=== PATIENT | female | born 1975 | race Caucasian/White ===

== ENCOUNTER 2019-05-16 17:16 | Observation (INO) | payer BC, OTHER ==
[2019-05-16] MEDS ORDERED: Sodium Chloride 0.9% 10 ML Syringe FLUSH PRN (17:40)
[2019-05-16] MEDS ORDERED: Sodium Chloride 0.9% 2.5 ML Syringe FLUSH PRN (17:40)
[2019-05-16] MEDS ORDERED: Ondansetron 4 MG/2 ML SDV IVPUSH ONE (17:59)
--- NOTE | 2019-05-16 17:59 | EDM.PDOC ---
ED HPI GENERAL MEDICAL PROBLEM - General Stated Complaint: NAUSEA, BODY ACHES Time Seen by Provider: 05/16/19 17:40 Source of Information: Reports: Patient History Limitations: Reports: No Limitations - History of Present Illness INITIAL COMMENTS - FREE TEXT/NARRATIVE: HISTORY AND PHYSICAL: History of present illness: Patient is a 43-year-old female who presents to the emergency room today with complaints of nausea, vomiting and generalized body aches. She reports that she was at the clinic earlier today for these symptoms and was discharged home with a prescription for Zofran (hasn't filled or taken this medication yet). She did get a call from her primary care provider requesting that she come to the emergency room for reevaluation as her BUN/creatinine and calcium levels were elevated. Patient states she does have a history of type 2 diabetes and take Metformin along with Novolog subQ. Her blood sugars at home have been running in the 70's to low 110's. Patient denies any fever, chills, headache, change in vision, syncope or near syncope. Denies any chest pain, back pain, shortness of breath or cough. Denies any abdominal pain, diarrhea, constipation or dysuria. Has not noted any blood in urine or stool. Patient has been eating and drinking appropriately. Review of systems: As per history of present illness and below otherwise all systems reviewed and negative. Past medical history: As per history of present illness and as reviewed below otherwise noncontributory. Surgical history: As per history of present illness and as reviewed below otherwise noncontributory. Social history: See social history for further information Family history: As per history of present illness and as reviewed below otherwise noncontributory. Physical exam: General: Well-developed and well-nourished 43-year-old female. Alert and oriented. Nontoxic-appearing and in no acute distress. HEENT: Atraumatic, normocephalic, pupils equal and reactive bilaterally, negative for conjunctival pallor or scleral icterus, mucous membranes dry and cracked, TMs normal bilaterally, throat clear, neck supple, nontender, trachea midline. No drooling or trismus noted. No meningeal signs. No hot potato voice noted. Lungs: Clear to auscultation, breath sounds equal bilaterally, chest nontender. Heart: S1S2, regular rate and rhythm without overt murmur Abdomen: Soft, nondistended, nontender. Negative for masses or hepatosplenomegaly. Negative for costovertebral tenderness. Pelvis: Stable nontender. Skin: Intact, warm, dry. No lesions or rashes noted. Extremities: Atraumatic, moves all extremities per self without difficulty or deficits, negative for cords or calf pain. Neurovascular unremarkable. Neuro: Awake, alert, oriented. Cranial nerves II through XII unremarkable. Cerebellum unremarkable. Motor and sensory unremarkable throughout. Exam nonfocal. Notes: Patient's calcium, BUN and creatinine are elevated. I did talk to Dr. Gage, specialist production control supervisor, who is agreeable to keeping this patient for further management and care. I did add a parathyroid lab and additional fluids on at this time. Patient was made aware of today's lab findings and is agreeable for admission. Vital signs remained stable. Diagnostics: CBC, CMP, UA, Influenza, PTH, Therapeutics: IV fluids, Zofran Impression: Hypercalcemia History of type 2 diabetes Dehydration Plan: Observation admission with telemetry Definitive disposition and diagnosis as appropriate pending reevaluation and review of above. Generalized Pain Score (Numeric/FACES): 4 - Related Data Allergies Allergy/AdvReac Type Severity Reaction Status Date / Time No Known Allergies Allergy Verified 05/16/19 17:45 Home Meds: Home Meds Insulin Detemir [Levemir Flextouch] 20 units SUBCUT DAILY 12/25/14 [History] Lisinopril 40 mg PO QPM 12/25/14 [History] metFORMIN HCl [Metformin HCl] 500 mg PO QPM 12/25/14 [History] Calcium Carbonate [Calcium] 600 mg PO DAILY 02/17/18 [History] Cholecalciferol (Vitamin D3) [Vitamin D] 400 units PO DAILY 02/17/18 [History] Cinnamon Bark [Cinnamon] 500 mg PO DAILY 02/17/18 [History] Escitalopram Oxalate 20 mg PO DAILY 02/17/18 [History] Indapamide 2.5 mg PO QAM 02/17/18 [History] Insulin Aspart [NovoLOG] 1 injection SUBCUT ASDIRECTED 02/17/18 [History] Multivitamin [Multivitamins] 1 tab PO DAILY 02/17/18 [History] atorvaSTATin Calcium [Atorvastatin Calcium] 20 mg PO DAILY 02/17/18 [History] metFORMIN HCl [Metformin HCl] 1,000 mg PO QAM 02/17/18 [History] Past Medical History HEENT History: Reports: Other (See Below) Other HEENT History: wears glasses Cardiovascular History: Reports: Hypertension, Other (See Below) (borderline cholesterol) Gastrointestinal History: Reports: Colon Polyp Neurological History: Reports: Headaches, Chronic, Neuropathy, Peripheral Psychiatric History: Reports: Anxiety, Depression Endocrine/Metabolic History: Reports: Diabetes, Type II, Obesity/BMI 30+ Dermatologic History: Reports: Other (See Below) Other Dermatologic History: dry skin - Past Surgical History Head Surgeries/Procedures: Reports: None HEENT Surgical History: Reports: Oral Surgery GI Surgical History: Reports: Colonoscopy (3 years ago) ED ROS GENERAL - Review of Systems Review Of Systems: Comprehensive ROS is negative, except as noted in HPI. ED EXAM, GENERAL - Physical Exam Exam: See Below (See dictation) Course - Vital Signs Last Recorded V/S: Last Vital Signs Temp 97.6 F 05/16/19 17:45 Pulse 93 05/16/19 17:45 Resp 16 05/16/19 17:45 BP 134/78 05/16/19 17:45 Pulse Ox 97 05/16/19 17:45 - Orders/Labs/Meds Orders: Active Orders 24 hr Category Date Time Status Patient Status [ADT] Stat ADT 05/16/19 18:58 Ordered EKG Documentation Completion [RC] STAT Care 05/16/19 17:59 Active PTHRP (PTH-RELATED PEPTIDE) [REF] Stat Lab 05/16/19 18:53 Ordered TSH [CHEM] Stat Lab 05/16/19 18:53 Ordered UA RFX SHAMIR AND CULT IF INDIC [URIN] Stat Lab 05/16/19 18:43 Ordered Sodium Chloride 0.9% [Normal Saline] 1,000 ml Med 05/16/19 18:58 Ordered IV STAT Sodium Chloride 0.9% [Saline Flush] Med 05/16/19 17:40 Active 10 ml FLUSH ASDIRECTED PRN Sodium Chloride 0.9% [Saline Flush] Med 05/16/19 17:40 Active 2.5 ml FLUSH ASDIRECTED PRN Saline Lock Insert [OM.PC] Stat Oth 05/16/19 17:40 Ordered Medication Orders Sodium Chloride (Normal Saline) 1,000 mls @ 999 mls/hr IV STAT ONE Stop: 05/16/19 19:58 Sodium Chloride (Saline Flush) 10 ml FLUSH ASDIRECTED PRN PRN Reason: Keep Vein Open Sodium Chloride (Saline Flush) 2.5 ml FLUSH ASDIRECTED PRN PRN Reason: Keep Vein Open Labs: Laboratory Tests 05/16/19 05/16/19 05/16/19 Range/Units 17:50 17:50 17:50 WBC 9.71 (4.0-11.0) K/uL RBC 4.24 L (4.30-5.90) M/uL Hgb 12.1 (12.0-16.0) g/dL Hct 36.0 (36.0-46.0) % MCV 84.9 (80.0-98.0) fL MCH 28.5 (27.0-32.0) pg MCHC 33.6 (31.0-37.0) g/dL RDW Std Deviation 43.3 (28.0-62.0) fl RDW Coeff of Cathi 14 (11.0-15.0) % Plt Count 202 (150-400) K/uL MPV 10.40 (7.40-12.00) fL Neut % (Auto) 71.6 (48.0-80.0) % Lymph % (Auto) 19.4 (16.0-40.0) % [place] % (Auto) 6.5 (0.0-15.0) % Eos % (Auto) 2.3 (0.0-7.0) % Baso % (Auto) 0.2 (0.0-1.5) % Neut # (Auto) 7.0 H (1.4-5.7) K/uL Lymph # (Auto) 1.9 (0.6-2.4) K/uL [place] # (Auto) 0.6 (0.0-0.8) K/uL Eos # (Auto) 0.2 (0.0-0.7) K/uL Baso # (Auto) 0.0 (0.0-0.1) K/uL Nucleated RBC % 0.0 /100WBC Nucleated RBCs # 0 K/uL Sodium 141 (136-145) mmol/L Potassium 4.1 (3.5-5.1) mmol/L Chloride 103 (98-107) mmol/L Carbon Dioxide 29.2 (21.0-32.0) mmol/L BUN 47 H (7.0-18.0) mg/dL Creatinine 2.1 H (0.6-1.0) mg/dL Est Cr Clr Drug Dosing 30.44 mL/min Estimated GFR (MDRD) 25.5 ml/min Glucose 93 (74-106) mg/dL Calcium 12.8 H (8.5-10.1) mg/dL Total Bilirubin 0.5 (0.2-1.0) mg/dL AST 21 (15-37) IU/L ALT 22 (14-63) IU/L Alkaline Phosphatase 58 (46-116) U/L Total Protein 7.2 (6.4-8.2) g/dL Albumin 3.5 (3.4-5.0) g/dL Globulin 3.7 (2.6-4.0) g/dL Albumin/Globulin Ratio 0.9 (0.9-1.6) Monoscreen NEGATIVE (NEG) Meds: Medications Generic Name Dose Route Start Last Admin Trade Name Freq PRN Reason Stop Dose Admin Sodium Chloride 1,000 mls @ 999 mls/hr 05/16/19 18:58 Normal Saline IV 05/16/19 19:58 STAT ONE Sodium Chloride 10 ml 05/16/19 17:40 Saline Flush FLUSH ASDIRECTED PRN Keep Vein Open Sodium Chloride 2.5 ml 05/16/19 17:40 Saline Flush FLUSH ASDIRECTED PRN Keep Vein Open Discontinued Medications Generic Name Dose Route Start Last Admin Trade Name Freq PRN Reason Stop Dose Admin Sodium Chloride 1,000 mls @ 999 mls/hr 05/16/19 18:01 05/16/19 18:22 Normal Saline IV 05/16/19 19:01 999 mls/hr STAT ONE Administration Ondansetron HCl 4 mg 05/16/19 17:59 05/16/19 18:22 Zofran IVPUSH 05/16/19 18:00 4 mg ONETIME ONE Administration Departure - Departure Time of Disposition: 19:08 Disposition: Refer to Observation Clinical Impression: Hypercalcemia, Dehydration, History of diabetes mellitus, type II - Discharge Information Referrals: Viry Tran, KNITTING MACHINE OPERATOR HELPER [Primary Care Provider] - Sepsis Event Note - Focused Exam Vital Signs: Vital Signs Temp Pulse Resp BP Pulse Ox 05/16/19 17:45 97.6 F 93 16 134/78 97 Date Exam was Performed: 05/16/19 Time Exam was Performed: 19:01 - My Orders Last 24 Hours: My Active Orders 05/16/19 17:40 Sodium Chloride 0.9% [Saline Flush] 10 ml FLUSH ASDIRECTED PRN Sodium Chloride 0.9% [Saline Flush] 2.5 ml FLUSH ASDIRECTED PRN Saline Lock Insert [OM.PC] Stat 05/16/19 17:59 EKG Documentation Completion [RC] STAT 05/16/19 18:43 UA RFX SHAMIR AND CULT IF INDIC [URIN] Stat 05/16/19 18:53 PTHRP (PTH-RELATED PEPTIDE) [REF] Stat TSH [CHEM] Stat 05/16/19 18:58 Patient Status [ADT] Stat Sodium Chloride 0.9% [Normal Saline] 1,000 ml IV STAT - Assessment/Plan Last 24 Hours: My Active Orders 05/16/19 17:40 Sodium Chloride 0.9% [Saline Flush] 10 ml FLUSH ASDIRECTED PRN Sodium Chloride 0.9% [Saline Flush] 2.5 ml FLUSH ASDIRECTED PRN Saline Lock Insert [OM.PC] Stat 05/16/19 17:59 EKG Documentation Completion [RC] STAT 05/16/19 18:43 UA RFX SHAMIR AND CULT IF INDIC [URIN] Stat 05/16/19 18:53 PTHRP (PTH-RELATED PEPTIDE) [REF] Stat TSH [CHEM] Stat 05/16/19 18:58 Patient Status [ADT] Stat Sodium Chloride 0.9% [Normal Saline] 1,000 ml IV STAT
[2019-05-16] MEDS ORDERED: Sodium Chloride 0.9% 1,000 ML IV ONE ×2 (18:01→18:58)
[2019-05-16 18:24] LABS: CARBON DIOXIDE,CO2 29.2 mmol/L (21.0-32.0); POTASSIUM,K 4.1 mmol/L (3.5-5.1)
[2019-05-16] MEDS ORDERED: Calcitonin (Salmon) 200 Units/ML 2 ML MDV SUBCUT ONE (19:15)
[2019-05-16] MEDS ORDERED: Ondansetron 4 MG/2 ML SDV IVPUSH PRN (19:48)
[2019-05-16] MEDS ORDERED: Albuterol/Ipratropium 3.0-0.5 MG/3 ML Neb Soln NEB PRN (19:48)
--- NOTE | 2019-05-16 20:42 | CR ---
Chest: Portable view of the chest was obtained. Comparison: No prior chest imaging. Heart size and mediastinum are normal. Nodular density within the right upper lung is seen believed to represent costochondral calcification of the 1st rib. Lungs are felt to be clear. Calcifications are noted around the right humeral head most likely representing changes from calcific tendinitis. Minimal scoliosis is noted within the spine with scattered endplate spurring. Impression: 1. Findings as noted above. 2. Nothing acute is appreciated on portable chest x-ray. Diagnostic code #2 This report was dictated in [place] Standard Time
[2019-05-16] MEDS ORDERED: Alum Hydrox/Mag Hydrox/Simeth 15 ML, Metoclopramide 5 MG, Lidocaine 2% 5 ML PO ONE ×3 (20:51)
--- NOTE | 2019-05-16 21:42 | PCM.HP.2 ---
H&P History of Present Illness - General Date of Service: 05/16/19 Admit Problem/Dx: Admission Diagnosis/Problem Admission Diagnosis/Problem Hypercalcemia History Limitations: Reports: No Limitations - History of Present Illness Initial Comments - Free Text/Narative: Patient is a 43-year-old female with PMH of DM-type 2 who presents to the emergency room today with complaints of nausea, vomiting and generalized body aches and pain for past several days. She states she feels "run down" even though she has been taking rest for extended amount of time but she still feels severe fatigue. Patient was at the [facility] earlier today to get checked for these symptoms and was prescribed Zofran and some blood work was drawn and was discharged home with a prescription for Zofran . Soon after, She did get a call from her primary care provider requesting that she come to the emergency room for reevaluation as her BUN/creatinine and calcium levels were elevated. Patient denies any fever, chills, headache, change in vision, syncope or near syncope. Denies any chest pain, back pain, shortness of breath or cough. Denies any abdominal pain, diarrhea, constipation or dysuria. Has not noted any blood in urine or stool. Patient has been eating and drinking appropriately. In the ER patient was found to have MARIBELL with filenet p8 developer of 2.1 and her Ca was 12.8. EKG was unremarkable. Received 1L bolus. I requested ER to administer calcitonin and another 1L bolus and obtain PTH. Patient was admitted for further management. Patient non-smoker, no h/o cancer. Onset of Symptoms: Reports: Gradual Duration of Symptoms: Reports: Day(s): Severity: Moderate Improves with: Reports: Immobilization Worsens with: Reports: Movement Associated Symptoms: Reports: Loss of Appetite, Malaise, Nausea/Vomiting, Weakness Generalized Pain Score (Numeric/FACES): 4 - Related Data Allergies/Adverse Reactions: Allergies Allergy/AdvReac Type Severity Reaction Status Date / Time No Known Allergies Allergy Verified 05/16/19 22:52 Home Medications: Home Meds Insulin Detemir [Levemir Flextouch] 20 units SUBCUT BEDTIME 12/25/14 [History] Lisinopril 40 mg PO DAILY 12/25/14 [History] metFORMIN HCl [Metformin HCl] 500 mg PO QPM 12/25/14 [History] Escitalopram Oxalate 20 mg PO DAILY 02/17/18 [History] Indapamide 2.5 mg PO DAILY 02/17/18 [History] Insulin Aspart [NovoLOG] 1 injection SUBCUT ASDIRECTED 02/17/18 [History] atorvaSTATin Calcium [Atorvastatin Calcium] 20 mg PO DAILY 02/17/18 [History] metFORMIN HCl [Metformin HCl] 1,000 mg PO QAM 02/17/18 [History] Exenatide Microspheres [Bydureon Pen] 2 mg SUBCUT WEEKLY 05/16/19 [History] Ondansetron [Ondansetron ODT] 4 mg PO Q6H PRN 05/16/19 [History] Pantoprazole Sodium [Protonix] 20 mg PO DAILY 05/16/19 [History] Past Medical History HEENT History: Reports: Other (See Below) Other HEENT History: wears glasses Cardiovascular History: Reports: Hypertension, Other (See Below) (borderline cholesterol) Gastrointestinal History: Reports: Colon Polyp Neurological History: Reports: Headaches, Chronic, Neuropathy, Peripheral Psychiatric History: Reports: Anxiety, Depression Endocrine/Metabolic History: Reports: Diabetes, Type II, Obesity/BMI 30+ Dermatologic History: Reports: Other (See Below) Other Dermatologic History: dry skin - Infectious Disease History Infectious Disease History: Reports: Chicken Pox - Past Surgical History Head Surgeries/Procedures: Reports: None HEENT Surgical History: Reports: Oral Surgery GI Surgical History: Reports: Colonoscopy (3 years ago) Social & Family History - Tobacco Use Smoking Status *Q: Never Smoker Second Hand Smoke Exposure: No - Caffeine Use Caffeine Use: Reports: Coffee, Soda, Tea - Recreational Drug Use Recreational Drug Use: No H&P Review of Systems - Review of Systems: Review Of Systems: See Below General: Reports: Malaise, Weakness, Fatigue, Decreased Appetite. Denies: Fever , Chills, Night Sweats Pulmonary: Denies: Shortness of Breath, Wheezing, Pleuritic Chest Pain Cardiovascular: Denies: Chest Pain, Palpitations, Dyspnea on Exertion Gastrointestinal: Denies: Abdominal Pain, Black Stool, Bloody Stool, Hematemesis Genitourinary: Reports: Frequency. Denies: Burning, Pain, Urgency, Incontinence Skin: Denies: Cyanosis, Jaundice, Mottled Psychiatric: Denies: Depression, Mood Lability, Anxiety, Agitation, Cravings, Hallucinations Neurological: Denies: Dizziness, Headache, Numbness, Paresthesia Hematologic/Lymphatic: Denies: Anemia, Easy Bleeding, Easy Bruising Exam - Exam Exam: See Below - Vital Signs Vital Signs: Last Vital Signs Temp 36.5 C 05/16/19 19:48 Pulse 86 05/16/19 19:48 Resp 18 05/16/19 19:48 BP 141/69 H 05/16/19 19:48 Pulse Ox 97 05/16/19 19:48 Weight: 97.522 kg - Exam General: Alert, Oriented Neck: Trachea Midline Lungs: Clear to Auscultation, Normal Respiratory Effort Cardiovascular: Regular Rate, Regular Rhythm, Normal S1, Normal S2 Extremities: Normal Inspection, Normal Range of Motion, Non-Tender - Patient Data Lab Results Last 24 hrs: Laboratory Results - last 24 hr 05/16/19 05/16/19 05/16/19 Range/Units 17:50 17:50 17:50 WBC 9.71 (4.0-11.0) K/uL RBC 4.24 L (4.30-5.90) M/uL Hgb 12.1 (12.0-16.0) g/dL Hct 36.0 (36.0-46.0) % MCV 84.9 (80.0-98.0) fL MCH 28.5 (27.0-32.0) pg MCHC 33.6 (31.0-37.0) g/dL RDW Std Deviation 43.3 (28.0-62.0) fl RDW Coeff of Cathi 14 (11.0-15.0) % Plt Count 202 (150-400) K/uL MPV 10.40 (7.40-12.00) fL Neut % (Auto) 71.6 (48.0-80.0) % Lymph % (Auto) 19.4 (16.0-40.0) % [place] % (Auto) 6.5 (0.0-15.0) % Eos % (Auto) 2.3 (0.0-7.0) % Baso % (Auto) 0.2 (0.0-1.5) % Neut # (Auto) 7.0 H (1.4-5.7) K/uL Lymph # (Auto) 1.9 (0.6-2.4) K/uL [place] # (Auto) 0.6 (0.0-0.8) K/uL Eos # (Auto) 0.2 (0.0-0.7) K/uL Baso # (Auto) 0.0 (0.0-0.1) K/uL Nucleated RBC % 0.0 /100WBC Nucleated RBCs # 0 K/uL Sodium 141 (136-145) mmol/L Potassium 4.1 (3.5-5.1) mmol/L Chloride 103 (98-107) mmol/L Carbon Dioxide 29.2 (21.0-32.0) mmol/L BUN 47 H (7.0-18.0) mg/dL Creatinine 2.1 H (0.6-1.0) mg/dL Est Cr Clr Drug Dosing 30.44 mL/min Estimated GFR (MDRD) 25.5 ml/min Glucose 93 (74-106) mg/dL Calcium 12.8 H (8.5-10.1) mg/dL Total Bilirubin 0.5 (0.2-1.0) mg/dL AST 21 (15-37) IU/L ALT 22 (14-63) IU/L Alkaline Phosphatase 58 (46-116) U/L Total Protein 7.2 (6.4-8.2) g/dL Albumin 3.5 (3.4-5.0) g/dL Globulin 3.7 (2.6-4.0) g/dL Albumin/Globulin Ratio 0.9 (0.9-1.6) TSH 3rd Generation (0.36-3.74) uIU/mL Monoscreen NEGATIVE (NEG) 05/16/19 Range/Units 17:50 WBC (4.0-11.0) K/uL RBC (4.30-5.90) M/uL Hgb (12.0-16.0) g/dL Hct (36.0-46.0) % MCV (80.0-98.0) fL MCH (27.0-32.0) pg MCHC (31.0-37.0) g/dL RDW Std Deviation (28.0-62.0) fl RDW Coeff of Cathi (11.0-15.0) % Plt Count (150-400) K/uL MPV (7.40-12.00) fL Neut % (Auto) (48.0-80.0) % Lymph % (Auto) (16.0-40.0) % [place] % (Auto) (0.0-15.0) % Eos % (Auto) (0.0-7.0) % Baso % (Auto) (0.0-1.5) % Neut # (Auto) (1.4-5.7) K/uL Lymph # (Auto) (0.6-2.4) K/uL [place] # (Auto) (0.0-0.8) K/uL Eos # (Auto) (0.0-0.7) K/uL Baso # (Auto) (0.0-0.1) K/uL Nucleated RBC % /100WBC Nucleated RBCs # K/uL Sodium (136-145) mmol/L Potassium (3.5-5.1) mmol/L Chloride (98-107) mmol/L Carbon Dioxide (21.0-32.0) mmol/L BUN (7.0-18.0) mg/dL Creatinine (0.6-1.0) mg/dL Est Cr Clr Drug Dosing mL/min Estimated GFR (MDRD) ml/min Glucose (74-106) mg/dL Calcium (8.5-10.1) mg/dL Total Bilirubin (0.2-1.0) mg/dL AST (15-37) IU/L ALT (14-63) IU/L Alkaline Phosphatase (46-116) U/L Total Protein (6.4-8.2) g/dL Albumin (3.4-5.0) g/dL Globulin (2.6-4.0) g/dL Albumin/Globulin Ratio (0.9-1.6) TSH 3rd Generation 0.50 (0.36-3.74) uIU/mL Monoscreen (NEG) Result Diagrams: 05/16/19 17:50 05/16/19 17:50 Nasim Results Last 24 hrs: Microbiology 05/16/19 18:18 Influenza Type A Antigen Screen - Final Nasopharyngeal Swab NEGATIVE INFLUENZA A VIRUS AG REFERENCE RANGE: NEGATIVE Influenza Type B Antigen Screen - Final NEGATIVE INFLUENZA B VIRUS AG REFERENCE RANGE: NEGATIVE Sepsis Event Note - Evaluation Sepsis Screening Result: No Definite Risk - Focused Exam Vital Signs: Vital Signs Temp Pulse Resp BP Pulse Ox 05/16/19 19:48 36.5 C 86 18 141/69 H 97 05/16/19 17:45 36.4 C 93 16 134/78 97 Date Exam was Performed: 05/16/19 Time Exam was Performed: 23:08 - Problem List (1) MARIBELL (acute kidney injury) SNOMED Code(s): 21929544, 71165410 ICD Code: N17.9 - ACUTE KIDNEY FAILURE, UNSPECIFIED Status: Acute Current Visit: Yes (2) Dehydration SNOMED Code(s): 35136812 ICD Code: E86.0 - DEHYDRATION Status: Acute Current Visit: Yes (3) History of diabetes mellitus, type II SNOMED Code(s): 105261501 ICD Code: Z86.39 - PERSONAL HISTORY OF ENDO, NUTRITIONAL AND METABOLIC DISEASE Status: Acute Current Visit: Yes (4) Hypercalcemia SNOMED Code(s): 83848457 ICD Code: E83.52 - HYPERCALCEMIA Status: Acute Current Visit: Yes Problem List Initiated/Reviewed/Updated: Yes Orders Last 24hrs: Active Orders 24 hr Category Date Time Status Patient Status [ADT] Stat ADT 05/16/19 18:58 Active Ambulate [RC] ASDIRECTED Care 05/16/19 19:48 Active Antiembolic Devices [RC] PER UNIT ROUTINE Care 05/16/19 19:49 Active EKG Documentation Completion [RC] STAT Care 05/16/19 17:59 Active Oxygen Therapy [RC] PRN Care 05/16/19 19:48 Active Pulse Oximetry [RC] PRN Care 05/16/19 19:49 Active RT Aerosol Therapy [RC] ASDIRECTED Care 05/16/19 19:50 Active Telemetry Monitoring [Cardiac Monitoring] [RC] . Care 05/16/19 20:20 Active DIRECTED VTE/DVT Education [RC] PER UNIT ROUTINE Care 05/16/19 19:48 Active Vital Signs [RC] Q4H Care 05/16/19 19:48 Active Clear Liquid Diet [DIET] Diet 05/17/19 Breakfast Active BMP [BASIC METABOLIC PANEL,BMP] [CHEM] AM Lab 05/17/19 05:11 Ordered CBC WITH AUTO DIFF [HEME] AM Lab 05/17/19 05:11 Ordered MAGNESIUM [CHEM] AM Lab 05/17/19 05:11 Ordered PHOSPHORUS [CHEM] AM Lab 05/17/19 05:11 Ordered PTH, INTACT [REF] Stat Lab 05/16/19 19:57 Received UA RFX NASIM AND CULT IF INDIC [URIN] Stat Lab 05/16/19 18:43 Ordered Albuterol/Ipratropium [DuoNeb 3.0-0.5 MG/3 ML] Med 05/16/19 19:48 Active 3 ml NEB Q4HRRT PRN Insulin Aspart [NovoLOG] Med 05/17/19 07:30 Active See Protocol SUBCUT TIDAC Insulin Detemir [Levemir] Med 05/16/19 21:41 Once 15 unit SUBCUT ONETIME ONE Ondansetron [Zofran] Med 05/16/19 19:48 Active 4 mg IVPUSH Q4H PRN Sodium Chloride 0.9% [Normal Saline] 1,000 ml Med 05/16/19 20:00 Active IV ASDIRECTED Sodium Chloride 0.9% [Saline Flush] Med 05/16/19 17:40 Active 10 ml FLUSH ASDIRECTED PRN Sodium Chloride 0.9% [Saline Flush] Med 05/16/19 17:40 Active 2.5 ml FLUSH ASDIRECTED PRN Saline Lock Insert [OM.PC] Stat Oth 05/16/19 17:40 Ordered Sequential Compression Device [OM.PC] Per Unit Routine Oth 05/16/19 19:49 Ordered Resuscitation Status Routine Resus Stat 05/16/19 19:48 Ordered Medication Orders Albuterol/Ipratropium (Duoneb 3.0-0.5 Mg/3 Ml) 3 ml NEB Q4HRRT PRN PRN Reason: Shortness Of Breath/wheezing Sodium Chloride (Normal Saline) 1,000 mls @ 200 mls/hr IV ASDIRECTED SERENITY Insulin Aspart (Novolog) 0 unit SUBCUT TIDAC SERENITY; Protocol Insulin Detemir (Levemir) 15 unit SUBCUT ONETIME ONE Stop: 05/16/19 21:42 Ondansetron HCl (Zofran) 4 mg IVPUSH Q4H PRN PRN Reason: Nausea/Vomiting Sodium Chloride (Saline Flush) 10 ml FLUSH ASDIRECTED PRN PRN Reason: Keep Vein Open Sodium Chloride (Saline Flush) 2.5 ml FLUSH ASDIRECTED PRN PRN Reason: Keep Vein Open Assessment/Plan Comment:: A/P: 43 y/o admitted for hypercalcemia and MARIBELL MARIBELL likely secondary to hypercalcemia/dehydration Will start aggressive IVF to help with volume expansion Will assess Ca levels in AM may need another dose of calcitonin CXR shows nodule per radiology likely rib lesion? Needs outpatient follow up to r/o occult malignancy causing secondary hypercalcemia Will continue to monitor electrolytes closely f/u on PTH and PTHrP cont telemetry clear liquid diet as tolerated cont SSI 10 units of Levemir at bedtime tonight Hold other home meds
[2019-05-16] MEDS ORDERED: Insulin Aspart 100 Units/ML 3 ML Pen SUBCUT ONE (21:45)
[2019-05-16] MEDS: Sodium Chloride 0.9% 1,000 ML IV SCH (22:51)
[2019-05-16] MEDS ORDERED: Insulin Detemir 100 Units/ML 3 ML Pen SUBCUT ONE (23:06)
[2019-05-16] MEDS ORDERED: 25% Dextrose in Water 10 ML Syringe IVPUSH ONE (23:55)
[2019-05-17] MEDS: Sodium Chloride 0.9% 1,000 ML IV SCH (05:58)
[2019-05-17 06:01] LABS: POTASSIUM,K 3.7 mmol/L (3.5-5.1)
[2019-05-17] MEDS: Insulin Aspart 100 Units/ML 3 ML Pen SUBCUT SCH ×2 (07:21→12:29)
[2019-05-17] MEDS ORDERED: Magnesium Sulfate/Water 2 GM in Premix Bag 1 BAG IV ONE (08:17)
[2019-05-17] MEDS ORDERED: Potassium Chloride 20 MEQ Tab.ER PO ONE (08:18)
[2019-05-17] MEDS ORDERED: Calcitonin (Salmon) 200 Units/ML 2 ML MDV SUBCUT ONE ×2 (10:17→12:00)
[2019-05-17 11:53] VITALS: BP 150/77; PULSE 96
--- NOTE | 2019-05-17 12:26 | PCM.DCSUM1 ---
Discharge Summary - Hospital Course Free Text/Narrative:: 43 y/o female with history of DM2 presenting to the ER complaining of nausea, vomiting, muscle cramps. She was found to be hypercalcemic Ca 12.8 and MARIBELL Cr 2.1. She was aggressively hydrated and given Calcitonin x2 doses. Overnight, her symptoms resolved. She was feeling much better. No nausea, vomiting. Her Ca had decreased to 10.2 and MARIBELL had improved. PTH was ordered which result was still pending at time of discharge. She was advised to stay hydrated and follow- up with her PCP in 1 week. - Discharge Data Discharge Date: 05/17/19 Discharge Disposition: Home, Self-Care 01 Condition: Good - Referral to Home Health Primary Care Physician: Viyr Tran NP - Patient Instructions Diet: Drink 8-10+ Glasses/Day, Diabetic Diet Activity: As Tolerated Notify Provider of: Fever, Increased Pain, Swelling and Redness, Nausea and/or Vomiting - Discharge Plan *PRESCRIPTION DRUG MONITORING PROGRAM REVIEWED*: Not Applicable *COPY OF PRESCRIPTION DRUG MONITORING REPORT IN PATIENT KATHERINE: Not Applicable Home Medications: Home Meds Insulin Detemir [Levemir Flextouch] 20 units SUBCUT BEDTIME 12/25/14 [History] Lisinopril 40 mg PO DAILY 12/25/14 [History] metFORMIN HCl [Metformin HCl] 500 mg PO QPM 12/25/14 [History] Escitalopram Oxalate 20 mg PO DAILY 02/17/18 [History] Indapamide 2.5 mg PO DAILY 02/17/18 [History] Insulin Aspart [NovoLOG] 1 injection SUBCUT ASDIRECTED 02/17/18 [History] atorvaSTATin Calcium [Atorvastatin Calcium] 20 mg PO DAILY 02/17/18 [History] metFORMIN HCl [Metformin HCl] 1,000 mg PO QAM 02/17/18 [History] Exenatide Microspheres [Bydureon Pen] 2 mg SUBCUT WEEKLY 05/16/19 [History] Ondansetron [Ondansetron ODT] 4 mg PO Q6H PRN 05/16/19 [History] Pantoprazole Sodium [Protonix] 20 mg PO DAILY 05/16/19 [History] Patient Handouts: Hypercalcemia Referrals: Viry Tran NP [Primary Care Provider] - 05/25/19 10:00 am (Arrive 15 minutes early with photo ID and insurance card. ) - Discharge Summary/Plan Comment DC Time >30 min.: No - Patient Data Vitals - Most Recent: Last Vital Signs Temp 36.9 C 05/17/19 11:52 Pulse 96 05/17/19 11:52 Resp 18 05/17/19 11:52 BP 150/77 H 05/17/19 11:52 Pulse Ox 96 05/17/19 11:52 Weight - Most Recent: 97.522 kg I&O - Last 24 hours: Intake & Output 05/16/19 05/17/19 05/17/19 22:59 06:59 14:59 Intake Total 856 Balance 856 Lab Results - Last 24 hrs: Laboratory Results - last 24 hr 05/16/19 05/16/19 05/16/19 Range/Units 17:50 17:50 17:50 WBC 9.71 (4.0-11.0) K/uL RBC 4.24 L (4.30-5.90) M/uL Hgb 12.1 (12.0-16.0) g/dL Hct 36.0 (36.0-46.0) % MCV 84.9 (80.0-98.0) fL MCH 28.5 (27.0-32.0) pg MCHC 33.6 (31.0-37.0) g/dL RDW Std Deviation 43.3 (28.0-62.0) fl RDW Coeff of Cathi 14 (11.0-15.0) % Plt Count 202 (150-400) K/uL MPV 10.40 (7.40-12.00) fL Neut % (Auto) 71.6 (48.0-80.0) % Lymph % (Auto) 19.4 (16.0-40.0) % [place] % (Auto) 6.5 (0.0-15.0) % Eos % (Auto) 2.3 (0.0-7.0) % Baso % (Auto) 0.2 (0.0-1.5) % Neut # (Auto) 7.0 H (1.4-5.7) K/uL Lymph # (Auto) 1.9 (0.6-2.4) K/uL [place] # (Auto) 0.6 (0.0-0.8) K/uL Eos # (Auto) 0.2 (0.0-0.7) K/uL Baso # (Auto) 0.0 (0.0-0.1) K/uL Nucleated RBC % 0.0 /100WBC Nucleated RBCs # 0 K/uL Sodium 141 (136-145) mmol/L Potassium 4.1 (3.5-5.1) mmol/L Chloride 103 (98-107) mmol/L Carbon Dioxide 29.2 (21.0-32.0) mmol/L BUN 47 H (7.0-18.0) mg/dL Creatinine 2.1 H (0.6-1.0) mg/dL Est Cr Clr Drug Dosing 30.44 mL/min Estimated GFR (MDRD) 25.5 ml/min Glucose 93 (74-106) mg/dL POC Glucose (60-110) mg/dL Calcium 12.8 H (8.5-10.1) mg/dL Phosphorus (2.6-4.7) mg/dL Magnesium (1.8-2.4) mg/dL Total Bilirubin 0.5 (0.2-1.0) mg/dL AST 21 (15-37) IU/L ALT 22 (14-63) IU/L Alkaline Phosphatase 58 (46-116) U/L Total Protein 7.2 (6.4-8.2) g/dL Albumin 3.5 (3.4-5.0) g/dL Globulin 3.7 (2.6-4.0) g/dL Albumin/Globulin Ratio 0.9 (0.9-1.6) Vitamin D 25-Hydroxy (30.0-100.0) ng/mL Free T4 (0.76-1.46) ng/dL Free T3 (2.18-3.98) pg/mL TSH 3rd Generation (0.36-3.74) uIU/mL Urine Color Urine Appearance Urine pH (5.0-8.0) Ur Specific [place] (1.001-1.035) Urine Protein (NEGATIVE) mg/dL Urine Glucose (UA) (NEGATIVE) mg/dL Urine Ketones (NEGATIVE) mg/dL Urine Occult Blood (NEGATIVE) Urine Nitrite (NEGATIVE) Urine Bilirubin (NEGATIVE) Urine Urobilinogen (<2.0) EU/dL Ur Leukocyte Esterase (NEGATIVE) Monoscreen NEGATIVE (NEG) 05/16/19 05/16/19 05/16/19 Range/Units 17:50 21:50 22:38 WBC (4.0-11.0) K/uL RBC (4.30-5.90) M/uL Hgb (12.0-16.0) g/dL Hct (36.0-46.0) % MCV (80.0-98.0) fL MCH (27.0-32.0) pg MCHC (31.0-37.0) g/dL RDW Std Deviation (28.0-62.0) fl RDW Coeff of Cathi (11.0-15.0) % Plt Count (150-400) K/uL MPV (7.40-12.00) fL Neut % (Auto) (48.0-80.0) % Lymph % (Auto) (16.0-40.0) % [place] % (Auto) (0.0-15.0) % Eos % (Auto) (0.0-7.0) % Baso % (Auto) (0.0-1.5) % Neut # (Auto) (1.4-5.7) K/uL Lymph # (Auto) (0.6-2.4) K/uL [place] # (Auto) (0.0-0.8) K/uL Eos # (Auto) (0.0-0.7) K/uL Baso # (Auto) (0.0-0.1) K/uL Nucleated RBC % /100WBC Nucleated RBCs # K/uL Sodium (136-145) mmol/L Potassium (3.5-5.1) mmol/L Chloride (98-107) mmol/L Carbon Dioxide (21.0-32.0) mmol/L BUN (7.0-18.0) mg/dL Creatinine (0.6-1.0) mg/dL Est Cr Clr Drug Dosing mL/min Estimated GFR (MDRD) ml/min Glucose (74-106) mg/dL POC Glucose 63 (60-110) mg/dL Calcium (8.5-10.1) mg/dL Phosphorus (2.6-4.7) mg/dL Magnesium (1.8-2.4) mg/dL Total Bilirubin (0.2-1.0) mg/dL AST (15-37) IU/L ALT (14-63) IU/L Alkaline Phosphatase (46-116) U/L Total Protein (6.4-8.2) g/dL Albumin (3.4-5.0) g/dL Globulin (2.6-4.0) g/dL Albumin/Globulin Ratio (0.9-1.6) Vitamin D 25-Hydroxy (30.0-100.0) ng/mL Free T4 (0.76-1.46) ng/dL Free T3 (2.18-3.98) pg/mL TSH 3rd Generation 0.50 (0.36-3.74) uIU/mL Urine Color YELLOW Urine Appearance CLEAR Urine pH 6.0 (5.0-8.0) Ur Specific [place] 1.010 (1.001-1.035) Urine Protein NEGATIVE (NEGATIVE) mg/dL Urine Glucose (UA) NEGATIVE (NEGATIVE) mg/dL Urine Ketones NEGATIVE (NEGATIVE) mg/dL Urine Occult Blood NEGATIVE (NEGATIVE) Urine Nitrite NEGATIVE (NEGATIVE) Urine Bilirubin NEGATIVE (NEGATIVE) Urine Urobilinogen 0.2 (<2.0) EU/dL Ur Leukocyte Esterase NEGATIVE (NEGATIVE) Monoscreen (NEG) 05/16/19 05/17/19 05/17/19 Range/Units 23:53 02:19 05:33 WBC 8.79 (4.0-11.0) K/uL RBC 3.72 L (4.30-5.90) M/uL Hgb 10.6 L (12.0-16.0) g/dL Hct 31.5 L (36.0-46.0) % MCV 84.7 (80.0-98.0) fL MCH 28.5 (27.0-32.0) pg MCHC 33.7 (31.0-37.0) g/dL RDW Std Deviation 43.2 (28.0-62.0) fl RDW Coeff of Cathi 14 (11.0-15.0) % Plt Count 159 (150-400) K/uL MPV 9.70 (7.40-12.00) fL Neut % (Auto) 71.6 (48.0-80.0) % Lymph % (Auto) 19.1 (16.0-40.0) % [place] % (Auto) 6.7 (0.0-15.0) % Eos % (Auto) 2.4 (0.0-7.0) % Baso % (Auto) 0.2 (0.0-1.5) % Neut # (Auto) 6.3 H (1.4-5.7) K/uL Lymph # (Auto) 1.7 (0.6-2.4) K/uL [place] # (Auto) 0.6 (0.0-0.8) K/uL Eos # (Auto) 0.2 (0.0-0.7) K/uL Baso # (Auto) 0.0 (0.0-0.1) K/uL Nucleated RBC % 0.0 /100WBC Nucleated RBCs # 0 K/uL Sodium (136-145) mmol/L Potassium (3.5-5.1) mmol/L Chloride (98-107) mmol/L Carbon Dioxide (21.0-32.0) mmol/L BUN (7.0-18.0) mg/dL Creatinine (0.6-1.0) mg/dL Est Cr Clr Drug Dosing mL/min Estimated GFR (MDRD) ml/min Glucose (74-106) mg/dL POC Glucose 60 90 (60-110) mg/dL Calcium (8.5-10.1) mg/dL Phosphorus (2.6-4.7) mg/dL Magnesium (1.8-2.4) mg/dL Total Bilirubin (0.2-1.0) mg/dL AST (15-37) IU/L ALT (14-63) IU/L Alkaline Phosphatase (46-116) U/L Total Protein (6.4-8.2) g/dL Albumin (3.4-5.0) g/dL Globulin (2.6-4.0) g/dL Albumin/Globulin Ratio (0.9-1.6) Vitamin D 25-Hydroxy (30.0-100.0) ng/mL Free T4 (0.76-1.46) ng/dL Free T3 (2.18-3.98) pg/mL TSH 3rd Generation (0.36-3.74) uIU/mL Urine Color Urine Appearance Urine pH (5.0-8.0) Ur Specific [place] (1.001-1.035) Urine Protein (NEGATIVE) mg/dL Urine Glucose (UA) (NEGATIVE) mg/dL Urine Ketones (NEGATIVE) mg/dL Urine Occult Blood (NEGATIVE) Urine Nitrite (NEGATIVE) Urine Bilirubin (NEGATIVE) Urine Urobilinogen (<2.0) EU/dL Ur Leukocyte Esterase (NEGATIVE) Monoscreen (NEG) 05/17/19 05/17/19 05/17/19 Range/Units 05:33 05:33 07:09 WBC (4.0-11.0) K/uL RBC (4.30-5.90) M/uL Hgb (12.0-16.0) g/dL Hct (36.0-46.0) % MCV (80.0-98.0) fL MCH (27.0-32.0) pg MCHC (31.0-37.0) g/dL RDW Std Deviation (28.0-62.0) fl RDW Coeff of [place] (11.0-15.0) % Plt Count (150-400) K/uL MPV (7.40-12.00) fL Neut % (Auto) (48.0-80.0) % Lymph % (Auto) (16.0-40.0) % [place] % (Auto) (0.0-15.0) % Eos % (Auto) (0.0-7.0) % Baso % (Auto) (0.0-1.5) % Neut # (Auto) (1.4-5.7) K/uL Lymph # (Auto) (0.6-2.4) K/uL [place] # (Auto) (0.0-0.8) K/uL Eos # (Auto) (0.0-0.7) K/uL Baso # (Auto) (0.0-0.1) K/uL Nucleated RBC % /100WBC Nucleated RBCs # K/uL Sodium 141 (136-145) mmol/L Potassium 3.7 (3.5-5.1) mmol/L Chloride 108 H (98-107) mmol/L Carbon Dioxide 25.0 (21.0-32.0) mmol/L BUN 39 H (7.0-18.0) mg/dL Creatinine 1.8 H (0.6-1.0) mg/dL Est Cr Clr Drug Dosing 35.51 mL/min Estimated GFR (MDRD) 30.4 ml/min Glucose 114 H (74-106) mg/dL POC Glucose 92 (60-110) mg/dL Calcium 10.2 H (8.5-10.1) mg/dL Phosphorus 2.4 L (2.6-4.7) mg/dL Magnesium 1.0 L (1.8-2.4) mg/dL Total Bilirubin (0.2-1.0) mg/dL AST (15-37) IU/L ALT (14-63) IU/L Alkaline Phosphatase (46-116) U/L Total Protein (6.4-8.2) g/dL Albumin (3.4-5.0) g/dL Globulin (2.6-4.0) g/dL Albumin/Globulin Ratio (0.9-1.6) Vitamin D 25-Hydroxy 7.3 L (30.0-100.0) ng/mL Free T4 1.36 (0.76-1.46) ng/dL Free T3 2.16 L (2.18-3.98) pg/mL TSH 3rd Generation (0.36-3.74) uIU/mL Urine Color Urine Appearance Urine pH (5.0-8.0) Ur Specific [place] (1.001-1.035) Urine Protein (NEGATIVE) mg/dL Urine Glucose (UA) (NEGATIVE) mg/dL Urine Ketones (NEGATIVE) mg/dL Urine Occult Blood (NEGATIVE) Urine Nitrite (NEGATIVE) Urine Bilirubin (NEGATIVE) Urine Urobilinogen (<2.0) EU/dL Ur Leukocyte Esterase (NEGATIVE) Monoscreen (NEG) 05/17/19 Range/Units 12:13 WBC (4.0-11.0) K/uL RBC (4.30-5.90) M/uL Hgb (12.0-16.0) g/dL Hct (36.0-46.0) % MCV (80.0-98.0) fL MCH (27.0-32.0) pg MCHC (31.0-37.0) g/dL RDW Std Deviation (28.0-62.0) fl RDW Coeff of Cathi (11.0-15.0) % Plt Count (150-400) K/uL MPV (7.40-12.00) fL Neut % (Auto) (48.0-80.0) % Lymph % (Auto) (16.0-40.0) % [place] % (Auto) (0.0-15.0) % Eos % (Auto) (0.0-7.0) % Baso % (Auto) (0.0-1.5) % Neut # (Auto) (1.4-5.7) K/uL Lymph # (Auto) (0.6-2.4) K/uL [place] # (Auto) (0.0-0.8) K/uL Eos # (Auto) (0.0-0.7) K/uL Baso # (Auto) (0.0-0.1) K/uL Nucleated RBC % /100WBC Nucleated RBCs # K/uL Sodium (136-145) mmol/L Potassium (3.5-5.1) mmol/L Chloride (98-107) mmol/L Carbon Dioxide (21.0-32.0) mmol/L BUN (7.0-18.0) mg/dL Creatinine (0.6-1.0) mg/dL Est Cr Clr Drug Dosing mL/min Estimated GFR (MDRD) ml/min Glucose (74-106) mg/dL POC Glucose 96 (60-110) mg/dL Calcium (8.5-10.1) mg/dL Phosphorus (2.6-4.7) mg/dL Magnesium (1.8-2.4) mg/dL Total Bilirubin (0.2-1.0) mg/dL AST (15-37) IU/L ALT (14-63) IU/L Alkaline Phosphatase (46-116) U/L Total Protein (6.4-8.2) g/dL Albumin (3.4-5.0) g/dL Globulin (2.6-4.0) g/dL Albumin/Globulin Ratio (0.9-1.6) Vitamin D 25-Hydroxy (30.0-100.0) ng/mL Free T4 (0.76-1.46) ng/dL Free T3 (2.18-3.98) pg/mL TSH 3rd Generation (0.36-3.74) uIU/mL Urine Color Urine Appearance Urine pH (5.0-8.0) Ur Specific [place] (1.001-1.035) Urine Protein (NEGATIVE) mg/dL Urine Glucose (UA) (NEGATIVE) mg/dL Urine Ketones (NEGATIVE) mg/dL Urine Occult Blood (NEGATIVE) Urine Nitrite (NEGATIVE) Urine Bilirubin (NEGATIVE) Urine Urobilinogen (<2.0) EU/dL Ur Leukocyte Esterase (NEGATIVE) Monoscreen (NEG) SHAMIR Results - Last 24 hrs: Microbiology 05/16/19 18:18 Influenza Type A Antigen Screen - Final Nasopharyngeal Swab NEGATIVE INFLUENZA A VIRUS AG REFERENCE RANGE: NEGATIVE Influenza Type B Antigen Screen - Final NEGATIVE INFLUENZA B VIRUS AG REFERENCE RANGE: NEGATIVE Med Orders - Current: Current Medications Albuterol/Ipratropium (Duoneb 3.0-0.5 Mg/3 Ml) 3 ml NEB Q4HRRT PRN PRN Reason: Shortness Of Breath/wheezing Sodium Chloride (Normal Saline) 1,000 mls @ 125 mls/hr IV ASDIRECTED [facility] Last Admin: 05/17/19 05:58 Dose: 125 mls/hr Insulin Aspart (Novolog) 0 unit SUBCUT TIDAC [facility]; Protocol Last Admin: 05/17/19 07:21 Dose: Not Given Ondansetron HCl (Zofran) 4 mg IVPUSH Q4H PRN PRN Reason: Nausea/Vomiting Last Admin: 05/16/19 22:45 Dose: 4 mg Sodium Chloride (Saline Flush) 10 ml FLUSH ASDIRECTED PRN PRN Reason: Keep Vein Open Sodium Chloride (Saline Flush) 2.5 ml FLUSH ASDIRECTED PRN PRN Reason: Keep Vein Open Discontinued Medications Calcitonin [place] (Miacalcin) 390 units SUBCUT ONETIME ONE Stop: 05/16/19 19:16 Last Admin: 05/16/19 20:01 Dose: 390 units Calcitonin [place] (Miacalcin) 390 units SUBCUT ONETIME ONE Stop: 05/17/19 10:18 Last Admin: 05/17/19 11:15 Dose: 390 units Al Hydroxide/Mg Hydroxide 15 ml/ Metoclopramide HCl 5 mg/Lidocaine HCl 5 ml 0 ml PO ONETIME ONE Stop: 05/16/19 20:52 Last Admin: 05/16/19 20:58 Dose: 1 each Dextrose/Water (Dextrose 25% In Water) 10 ml IVPUSH ONETIME ONE Stop: 05/16/19 23:56 Last Admin: 05/17/19 00:30 Dose: 10 ml Sodium Chloride (Normal Saline) 1,000 mls @ 999 mls/hr IV STAT ONE Stop: 05/16/19 19:01 Last Admin: 05/16/19 18:22 Dose: 999 mls/hr Sodium Chloride (Normal Saline) 1,000 mls @ 999 mls/hr IV STAT ONE Stop: 05/16/19 19:58 Last Admin: 05/16/19 20:00 Dose: 999 mls/hr Magnesium Sulfate 2 gm/ Premix 50 mls @ 25 mls/hr IV ONETIME ONE Stop: 05/17/19 10:16 Last Admin: 05/17/19 09:31 Dose: 25 mls/hr Insulin Aspart (Novolog) 15 unit SUBCUT ONETIME ONE Stop: 05/16/19 21:46 Last Admin: 05/17/19 01:17 Dose: Not Given Insulin Detemir (Levemir) 10 unit SUBCUT ONETIME ONE Stop: 05/16/19 23:07 Last Admin: 05/16/19 23:50 Dose: Not Given Ondansetron HCl (Zofran) 4 mg IVPUSH ONETIME ONE Stop: 05/16/19 18:00 Last Admin: 05/16/19 18:22 Dose: 4 mg Potassium Chloride (Klor-Con M20) 40 meq PO ONETIME ONE Stop: 05/17/19 08:19 Last Admin: 05/17/19 09:31 Dose: 40 meq
== END 2019-05-17 13:45 | disposition home or self-care (01) ==
LOC: MW.ED 17:16 → MW.MS 18:58
PROVIDERS: ADMIT Student in an Organized Health Care Education/Training Program; ATTEND Student in an Organized Health Care Education/Training Program
DX: N17.9 Acute kidney failure, unspecified (principal); E83.52 Hypercalcemia; E86.0 Dehydration; E11.42 Type 2 diabetes mellitus with diabetic polyneuropathy; I10 Essential (primary) hypertension; F41.9 Anxiety disorder, unspecified; F32.9 Major depressive disorder, single episode, unspecified; E66.9 Obesity, unspecified; Z68.35 Body mass index [BMI] 35.0-35.9, adult; Z79.4 Long term (current) use of insulin; Z79.899 Other long term (current) drug therapy
CPT/HCPCS: 36415; 71045; 80048; 80053; 81003; 82306; 82397; 82962; 83735; 83970; 84100; 84439; 84443; 84481; 85025; 86308; 87804; 93005; A9270; J0630; J2405; J3475; J7030